=== PATIENT | female | born 1965 | race Two or more races ===

== ENCOUNTER 2023-12-24 07:47 | Inpatient (IN) | payer MEDICAID ==
[~2023-12-24] VITALS: Ht 147.3 cm; Wt 47.3 kg
[2023-12-24 08:07] LABS: Basophils # (auto) 0.1 10 ^3/uL (0-0.2); Basophils % (auto) 0.5 % (0.0-2.0); Eosinophils # (auto) 0.1 10 ^3/uL (0-0.8); Eosinophils % (auto) 1.4 % (0.0-7.0); Hematocrit 43.2 % (36.0-46.0); Hemoglobin 14.1 g/dL (12.2-16.2); Lymphocytes # (auto) 1.7 10 ^3/uL (0.4-5.4); Lymphocytes % (auto) 16.8 % (10.0-50.0); Mean Corpuscular Hemoglobin 29.5 pg (28.0-32.0); Mean Corpuscular Hgb Conc. 32.7 g/dL (32.0-36.0); Mean Corpuscular Volume 90.4 fL (80.0-100.0); Monocytes # (auto) 0.4 10 ^3/uL (0-1.3); Monocytes % (auto) 4.4 % (0.0-12.0); Neutrophils # (auto) 7.8 10 ^3/uL (1.6-8.6); Neutrophils % (auto) 76.9 % (37.0-80.0); Nucleated Red Blood Cells % 0.2 %; Red Blood Cells 4.77 10^6/uL (4.0-5.20); Red Cell Distribution Width 13.6 % (11.8-14.3); White Blood Cell 10.1 10^3/uL (4.4-10.8)
[2023-12-24 08:23] LABS: Alanine Aminotransferase 67 U/L (7-40); Alkaline Phosphatase 124 U/L (46-116); Calcium 9.9 mg/dL (8.5-10.1); Carbon Dioxide 30 mmol/L (20-30); Chloride 106 mmol/L (98-107)
[2023-12-24 08:24] LABS: Albumin 4.2 g/dL (3.2-4.8); Anion Gap 3 (5-15); Aspartate Aminotransferase 44 U/L (13-40); BUN/Creatinine Ratio 13.3 (10.0-20.0); Bilirubin, Total 0.9 mg/dL (0.2-1.0); Blood Urea Nitrogen 10 mg/dL (9-23); Glucose 96 mg/dL (74-106); Potassium 3.8 mmol/L (3.5-5.1); Sodium 139 mmol/L (136-145); Total Protein 6.7 g/dL (5.7-8.2)
[2023-12-24] MEDS: ASPirin 325 MG TAB PO ONE (10:16)
[2023-12-24] MEDS: NITROGLYCERIN 0.4 MG SL TAB SL ONE (10:20)
[2023-12-24] MEDS: IBUPROFEN 600 MG TAB PO ONE (10:37)
[2023-12-24 10:43] LABS: Urine Bacteria NONE SEEN /hpf (None Seen); Urine Blood Negative /uL (Negative); Urine Clarity Clear (Clear); Urine Color Yellow (Yellow); Urine Mucus FEW (None Seen); Urine Protein, UAD Negative (Negative); Urine Specific Gravity 1.015 (1.001-1.035); Urine Urobilinogen Normal (Negative); Urine WBC 5 /hpf (0 - 5); Urine pH 6.5 (5.0-8.0)
[2023-12-24] MEDS ORDERED: ONDANSETRON HCL 4 MG/2 ML VIAL IV PRN (10:45)
[2023-12-24] MEDS ORDERED: MORPHINE SULFATE 4 MG/ML SYR/VIAL IV PRN (10:45)
[2023-12-24] MEDS ORDERED: ACETAMINOPHEN 325 MG TAB PO PRN (10:45)
[2023-12-24 11:12] LABS: INR 0.99 (0.9-1.15); Prothrombin Time 10.4 sec (9.3-11.8)
[2023-12-24 11:37] LABS: Cholesterol 191 mg/dL (< 200); LDL Cholesterol 126 mg/dL (< 100); Triglycerides 106 mg/dL (< 150)
[2023-12-24 11:39] LABS: HDL Cholesterol 58 mg/dL (40-59)
[2023-12-24 12:19] LABS: Amphetamine Screen, Urine Neg (NEGATIVE); Barbiturate Scree,Urine Neg (NEGATIVE); Benzodiazephine Screen, Urine Neg (NEGATIVE); Cannabinoid Screen, Urine Neg (NEGATIVE); Cocaine Screen, Urine Neg (NEGATIVE); Opiate Scree,Urine Neg (NEGATIVE); Phencyclidine Screen, Urine Neg (NEGATIVE)
[2023-12-24 18:43] VITALS: PULSE 60; RESP 18
[2023-12-24 20:00] VITALS: PULSE 59
[2023-12-24 22:00] VITALS: BP 103/52; PULSE 56; RESP 16; TEMP 98.4; O2SAT 97
[2023-12-24] MEDS ORDERED: ATORVASTATIN 20 MG TAB PO SCH (22:00)
[2023-12-24] MEDS ORDERED: ENOXAPARIN SOD 100 MG/1 ML SYRINGE SC SCH (22:00)
[2023-12-24] MEDS: METOPROLOL TARTRATE 25 MG TAB PO SCH (22:00)
[2023-12-25] VITALS (7 sets, daily range): BP systolic 104–113; BP diastolic 54–69; PULSE 53–71; RESP 17–18; TEMP 97.9–99.2; O2SAT 97–100
[2023-12-25 06:44] LABS: Basophils # (auto) 0 10 ^3/uL (0-0.2); Basophils % (auto) 0.6 % (0.0-2.0); Eosinophils # (auto) 0.2 10 ^3/uL (0-0.8); Eosinophils % (auto) 3.1 % (0.0-7.0); Hematocrit 40.5 % (36.0-46.0); Hemoglobin 13.6 g/dL (12.2-16.2); Lymphocytes # (auto) 1.9 10 ^3/uL (0.4-5.4); Lymphocytes % (auto) 26.5 % (10.0-50.0); Mean Corpuscular Hemoglobin 30.4 pg (28.0-32.0); Mean Corpuscular Hgb Conc. 33.6 g/dL (32.0-36.0); Mean Corpuscular Volume 90.5 fL (80.0-100.0); Monocytes # (auto) 0.5 10 ^3/uL (0-1.3); Monocytes % (auto) 7.2 % (0.0-12.0); Neutrophils # (auto) 4.4 10 ^3/uL (1.6-8.6); Neutrophils % (auto) 62.6 % (37.0-80.0); Red Blood Cells 4.48 10^6/uL (4.0-5.20); Red Cell Distribution Width 13.5 % (11.8-14.3)
[2023-12-25 07:05] LABS: Alanine Aminotransferase 50 U/L (7-40); Albumin 4.1 g/dL (3.2-4.8); Alkaline Phosphatase 121 U/L (46-116); Anion Gap 3 (5-15); Aspartate Aminotransferase 35 U/L (13-40); BUN/Creatinine Ratio 12.3 (10.0-20.0); Bilirubin, Total 1.2 mg/dL (0.2-1.0); Blood Urea Nitrogen 9 mg/dL (9-23); Carbon Dioxide 29 mmol/L (20-30); Chloride 107 mmol/L (98-107); Cholesterol 178 mg/dL (< 200); Glucose 98 mg/dL (74-106); HDL Cholesterol 52 mg/dL (40-59); LDL Cholesterol 119 mg/dL (< 100); Potassium 4.2 mmol/L (3.5-5.1); Sodium 139 mmol/L (136-145); Total Protein 6.8 g/dL (5.7-8.2); Triglycerides 84 mg/dL (< 150)
[2023-12-25] MEDS: ADENOSINE 38 MG in GIVE UN-DILUTED 0 ML IV ONE (09:30)
[2023-12-25] MEDS: DOCUSATE SOD 100 MG CAP PO SCH (10:00)
[2023-12-25] MEDS: ENOXAPARIN SOD 30 MG/0.3 ML SYRINGE SC SCH (10:24)
[2023-12-25] MEDS: ASPirin 81 mg TAB PO SCH (10:24)
[2023-12-25] MEDS: NITROGLYCERIN 0.4 MG SL TAB SL PRN (14:57)
[2023-12-26 05:00] VITALS: BP 91/53; PULSE 60; RESP 15; TEMP 98.1; O2SAT 99
[2023-12-26 07:37] VITALS: BP 109/69; PULSE 66; RESP 14; TEMP 98.1
[2023-12-26 08:00] VITALS: BP 109/69; PULSE 66; PULSE 90; RESP 14; TEMP 98.1; O2SAT 97
[2023-12-26] MEDS ORDERED: ASPI-628 PO (11:40)
[2023-12-26] MEDS ORDERED: METO25TA5 PO (11:40)
[2023-12-26 12:00] VITALS: BP 104/66; PULSE 59; RESP 14; TEMP 98.6; O2SAT 99
[2023-12-26 14:03] VITALS: BP 104/66; PULSE 59; RESP 14
== END 2023-12-26 16:09 | disposition home or self-care (01) | DRG 203 ==
LOC: ER 07:47 → TELE 10:44 → TELE-WESTW 18:31
PROVIDERS: ADMIT Nurse Practitioner Family; ATTEND Family Medicine
DX: M94.0 Chondrocostal junction syndrome [Tietze] (principal); E78.5 Hyperlipidemia, unspecified; M79.602 Pain in left arm; N39.0 Urinary tract infection, site not specified; R74.01 Elevation of levels of liver transaminase levels; Z79.899 Other long term (current) drug therapy
CPT/HCPCS: 36415; 71045; 78452; 80053; 80061; 80307; 81001; 83036; 83735; 84443; 84484; 84702; 85025; 85379; 85610; 93005; 93017; 93306; 99291; G0378; J0153